=== PATIENT | male | born 1985 | race Hispanic/Latino ===

== ENCOUNTER 2017-11-16 07:07 | Day surgery (SDC) | payer OTHER ==
[2017-11-14 15:11] VITALS: BP 116/71
[2017-11-14 15:13] LABS: BASOPHILS % (AUTO) 0.5 % (0.0-5.0); EOSINOPHILS % (AUTO) 0.8 % (0.0-8.0); LYMPHOCYTES % (AUTO) 43.1 % (21.0-51.0); MEAN CORPUSCULAR HEMOGLOBIN 31.7 pg (27.0-33.0); MEAN CORPUSCULAR HGB CONC 36.3 g/dL (32.0-36.0); MEAN CORPUSCULAR VOLUME 87.2 fL (79-99); MONOCYTES % (AUTO) 7.5 % (3.0-13.0); NEUTROPHILS % (AUTO) 48.1 % (40.0-77.0); PLATELET COUNT (AUTO) 215 K/uL (130-400); RED BLOOD CELL COUNT(AUTO) 4.93 MIL/uL (4.50-6.20); RED CELL DISTRIBUTION WIDTH 13.5 % (11.0-15.5); WHITE BLOOD COUNT (AUTO) 5.2 K/uL (4.8-10.8)
[2017-11-14 15:16] LABS: APPEARANCE,URINE Clear (CLEAR); BILIRUBIN,URINE Small (NEGATIVE); COLOR,URINE Dark Yellow (YELLOW); GLUCOSE, URINE (UA) Negative (NEGATIVE); KETONES,URINE Trace mg/dL (NEGATIVE); LEUKOCYTE ESTERASE ,URINE Negative (NEGATIVE); NITRATE,URINE Negative (NEGATIVE); OCCULT BLOOD,URINE Negative (NEGATIVE); PROTEIN,URINE Negative (NEGATIVE)
[2017-11-14 15:26] LABS: AMORPHOUS SEDIMENT,UR Few /LPF (None Seen); BACTERIA,URINE Rare /HPF (None Seen); MUCUS,URINE Many LPF (None Seen); RBC,URINE None Seen /HPF (0-1); WBC,URINE None Seen /HPF (0-1)
[2017-11-16] VITALS (19 sets, daily range): BP systolic 100–124; BP diastolic 54–82
[~2017-11-16] VITALS: Ht 189.2 cm; Wt 100.9 kg
[2017-11-16] MEDS ORDERED: LACTATED RINGERS 1000ML 1,000 ML IV ONE (08:29)
[2017-11-16] MEDS ORDERED: MIDAZOLAM HCL 1 MG/ML 2ML VIAL ONE (09:28)
[2017-11-16] MEDS ORDERED: PROPOFOL 10 MG/ML 20ML VIAL IV ONE (09:31)
[2017-11-16] MEDS ORDERED: ROPIVACAINE 0.5% 5MG/ML 30ML IJ ONE (09:39)
[2017-11-16] MEDS ORDERED: CALDOLOR 800MG+NS 250ML 250 ML IV ONE (09:49)
[2017-11-16] MEDS ORDERED: FENTANYL CITRATE PF 50 MCG/1 ML 2ML VIAL ONE (09:54)
[2017-11-16] MEDS ORDERED: NEOSTIGMINE METHYLSULFATE 1MG/ML IV ONE (10:15)
[2017-11-16] MEDS ORDERED: DEXAMETHASONE SOD PHOSPHATE 10MG/ML 1ML VIAL ONE (10:15)
[2017-11-16] MEDS ORDERED: ONDANSETRON HCL 4 MG/2 ML VIAL ONE (10:15)
[2017-11-16] MEDS ORDERED: MEPERIDINE-PF 50 MG/ML SYG ONE (10:44)
[2017-11-16] MEDS ORDERED: TYL3 PO (12:08)
== END 2017-11-16 13:00 | disposition home or self-care (01) ==
LOC: DAH 07:07
PROVIDERS: ATTEND Surgery
DX: K42.9 Umbilical hernia without obstruction or gangrene (principal); Z98.890 Other specified postprocedural states; Z88.8 Allergy status to other drugs, medicaments and biological substances
CPT/HCPCS: 36415; 49585; 81001; 85025; A4450; A4606; A4930; J1100; J1741; J2175; J2250; J2405; J2704; J2710; J2795; J3010; J7120 ×2

== ENCOUNTER → 2019-09-04 | Outpatient (CLI) | payer BC ==
[~2019-09-04] MED LIST: TYL3 PO
== END | disposition home or self-care (01) ==
LOC: RAH 08:49
PROVIDERS: ATTEND Internal Medicine
DX: I86.1 Scrotal varices (principal); N44.2 Benign cyst of testis
CPT/HCPCS: 76870

== ENCOUNTER 2023-07-26 21:01 | Emergency (ER) | payer BC, OTHER ==
[~2023-07-26] VITALS: Ht 190.5 cm; Wt 104.3 kg
[2023-07-26] MEDS ORDERED: KETOROLAC 15MG/ML VIAL (15MG/ML) ONE (21:23)
[2023-07-26] MEDS ORDERED: FAMOTIDINE 20MG VIAL IV ONE (21:30)
[2023-07-26] MEDS ORDERED: KETOROLAC 30MG VIAL (30MG/ML) IVP ONE (21:30)
[2023-07-26] MEDS ORDERED: METOCLOPRAMIDE 10 MG/2 ML VIAL IVP ONE (21:30)
[2023-07-26] MEDS ORDERED: 0.9%NACL 1000ML 1,000 ML IV ONE ×3 (21:30→23:30)
[2023-07-26 21:40] LABS: BASOPHILS # (AUTO) 0.02 K/uL (0.00-0.20); BASOPHILS % (AUTO) 0.4 % (0.0-5.0); EOSINOPHILS # (AUTO) 0.04 K/uL (0.00-0.70); EOSINOPHILS % (AUTO) 0.7 % (0.0-8.0); HEMATOCRIT 44.3 % (42-54); IMMATURE GRANULOCYTE ABSOLUTE 0.01 K/uL (0-1); LYMPHOCYTES # (AUTO) 2.7 K/uL (1.0-4.8); LYMPHOCYTES % (AUTO) 49.5 % (21.0-51.0); MEAN CORPUSCULAR HGB CONC 35.7 g/dL (32.0-36.0); MEAN CORPUSCULAR VOLUME 86.9 fL (79-99); MONOCYTES # (AUTO) 0.4 K/uL (0.1-1.0); MONOCYTES % (AUTO) 7.7 % (3.0-13.0); NEUTROPHILS # (AUTO) 2.3 K/uL (1.8-7.7); NEUTROPHILS % (AUTO) 41.5 % (40.0-77.0); PLATELET COUNT (AUTO) 237 K/uL (130-400); RED CELL DISTRIBUTION WIDTH 12.4 % (11.0-15.5); WHITE BLOOD COUNT (AUTO) 5.5 K/uL (4.8-10.8)
[2023-07-26 21:53] LABS: CREATININE 1.3 mg/dL (0.5-1.5); POTASSIUM 3.3 mmol/L (3.5-5.1)
[2023-07-26 22:00] LABS: ALBUMIN 4.4 g/dL (3.5-5.0); BILIRUBIN,TOTAL 0.8 mg/dL (0.2-1.0)
[2023-07-26] MEDS ORDERED: MORPHINE 4 MG SYG ONE (23:14)
[2023-07-26] MEDS ORDERED: MORPHINE 4 MG SYG IVP ONE (23:30)
[2023-07-26 23:35] LABS: APPEARANCE,URINE CLEAR (CLEAR); BILIRUBIN,URINE NEGATIVE (NEGATIVE); COLOR,URINE YELLOW (YELLOW); GLUCOSE, URINE (UA) NEGATIVE (NEGATIVE); KETONES,URINE 5 mg/dL (NEGATIVE); LEUKOCYTE ESTERASE ,URINE NEGATIVE Leu/uL (NEGATIVE); NITRATE,URINE NEGATIVE (NEGATIVE); OCCULT BLOOD,URINE LARGE (NEGATIVE); PROTEIN,URINE 50 mg/dL (NEGATIVE); UROBILINOGEN,URINE 0.2 mg/dL (0.2-1.0)
[2023-07-26 23:41] LABS: ADD UA MICROSCOPIC YES
[2023-07-27] MEDS ORDERED: KETO10 PO (00:09)
[2023-07-27] MEDS ORDERED: TAMS-1 PO (00:09)
[2023-07-27] MEDS ORDERED: FAMO-136 PO (00:09)
[2023-07-27] MEDS ORDERED: METO-296 PO (00:09)
[2023-07-27 00:15] LABS: MUCUS,URINE RARE LPF (None Seen); WBC,URINE 0-1 /HPF (0-1)
[2023-07-27 00:31] VITALS: BP 116/56; PULSE 80; RESP 18; O2SAT 99
== END 2023-07-27 00:32 | disposition home or self-care (01) ==
LOC: EDH 21:01
DX: N20.0 Calculus of kidney (principal); Z88.2 Allergy status to sulfonamides
CPT/HCPCS: 99285; 74176; 96374; 96361; 96375; 80053; 83690; 85025; 81001; 36415; J3490; J7030 ×2; J2270; J2765; J1885

== ENCOUNTER 2024-02-08 03:18 | Emergency (ER) | payer OTHER ==
[~2024-02-08] VITALS: Ht 188 cm; Wt 108.0 kg
[~2024-02-08 03:18] MED LIST changes: +FAMO-136 PO; +KETO10 PO; +METO-296 PO; +TAMS-1 PO
[2024-02-08] MEDS: DICYCLOMINE 20MG (10MG/ML) AMP IM ONE ×2 (03:47→03:51)
[2024-02-08] MEDS: ONDANSETRON 4MG INJ ONE (03:47)
[2024-02-08] MEDS: ONDANSETRON 4MG INJ IVP ONE (03:48)
[2024-02-08] MEDS: KETOROLAC 30MG VIAL (30MG/ML) ONE (03:48)
[2024-02-08] MEDS: KETOROLAC 30MG VIAL (30MG/ML) IVP ONE (03:49)
[2024-02-08] MEDS: 0.9%NACL 1000ML 1,000 ML IV ONE (03:49)
[2024-02-08 03:52] LABS: BASOPHILS # (AUTO) 0.04 K/uL (0.00-0.20); BASOPHILS % (AUTO) 0.5 % (0.0-5.0); EOSINOPHILS # (AUTO) 0.07 K/uL (0.00-0.70); EOSINOPHILS % (AUTO) 0.8 % (0.0-8.0); HEMATOCRIT 45.3 % (42-54); IMMATURE GRANULOCYTE ABSOLUTE 0.03 K/uL (0-1); LYMPHOCYTES # (AUTO) 2.3 K/uL (1.0-4.8); LYMPHOCYTES % (AUTO) 27.3 % (21.0-51.0); MEAN CORPUSCULAR VOLUME 86.3 fL (79-99); MONOCYTES # (AUTO) 0.5 K/uL (0.1-1.0); MONOCYTES % (AUTO) 6.1 % (3.0-13.0); NEUTROPHILS # (AUTO) 5.5 K/uL (1.8-7.7); NEUTROPHILS % (AUTO) 64.9 % (40.0-77.0); PLATELET COUNT (AUTO) 199 K/uL (130-400); RED BLOOD CELL COUNT(AUTO) 5.25 MIL/uL (4.50-6.20); WHITE BLOOD COUNT (AUTO) 8.4 K/uL (4.8-10.8)
[2024-02-08 03:53] VITALS: BP 108/74; PULSE 74; RESP 18; O2SAT 98
[2024-02-08 04:03] LABS: CREATININE 1.1 mg/dL (0.5-1.3); POTASSIUM 3.7 mmol/L (3.5-5.1)
[2024-02-08] MEDS ORDERED: DICY20TA2 PO (04:07)
[2024-02-08 04:29] LABS: ALBUMIN 4.2 g/dL (3.5-5.0); BILIRUBIN,TOTAL 1.8 mg/dL (0.2-1.0); TOTAL PROTEIN, SERUM 7.7 g/dL (6.0-8.3)
== END 2024-02-08 04:23 | disposition home or self-care (01) ==
LOC: EDH 03:18
DX: K80.50 Calculus of bile duct without cholangitis or cholecystitis without obstruction (principal); Z79.899 Other long term (current) drug therapy; Z98.890 Other specified postprocedural states; Z88.2 Allergy status to sulfonamides; Z88.8 Allergy status to other drugs, medicaments and biological substances
CPT/HCPCS: 99285; 96374; 76705; 96375; 82150; 80053; 83690; 85025; 36415; 96372; J7030; J2405; J1885; J0500